=== PATIENT | female | born 2000 | race Hispanic/Latino ===

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

== ENCOUNTER 2023-02-10 15:15 | Emergency (ER) | payer OTHER, SELFPAY ==
[2023-02-10] MEDS ORDERED: Ibuprofen 800 MG TAB ONE (15:41)
[2023-02-10] MEDS ORDERED: predniSONE 20 MG TAB ONE (15:57)
[2023-02-10 16:39] LABS: SARS-CoV-2 NAA Rapid Test Not Detected (NotDetected)
== END 2023-02-10 16:35 | disposition home or self-care (01) ==
LOC: ERS 15:15
DX: J02.9 Acute pharyngitis, unspecified (principal); Z20.822 Contact with and (suspected) exposure to COVID-19
CPT/HCPCS: 87430; 99283; J7512